=== PATIENT | male | born 1970 | race Caucasian/White ===

== ENCOUNTER 2018-08-03 07:59 | Inpatient (IN) | payer MEDICARE, MEDICAID ==
[~2018-08-03] VITALS: Ht 185.4 cm; Wt 87.0 kg
[2018-08-03] MEDS ORDERED: HALO10 PO (08:11)
[2018-08-03 08:21] LABS: BASOPHILS % (AUTO) 0.9 % (0.0-2.0); HEMATOCRIT 46.9 % (41-53); HEMOGLOBIN 15.7 g/dL (13.5-17.5); LYMPHOCYTES # (AUTO) 1.4 K/uL (1.0-4.8); MEAN CORPUSCULAR HEMOGLOBIN 30.5 pg (26.0-34.0); MEAN CORPUSCULAR HGB CONC 33.4 G/dL (31.0-37.0); MEAN CORPUSCULAR VOLUME 91 fL (80-100); MONOCYTES # (AUTO) 0.4 K/uL (0.1-1.0); MONOCYTES % (AUTO) 6.9 % (2.0-9.0); NEUTROPHILS # (AUTO) 4.2 K/uL (1.8-7.7); NEUTROPHILS % (AUTO) 67.2 % (40.0-70.0); PLATELET COUNT (AUTO) 213 K/uL (150-450); RED BLOOD CELL COUNT(AUTO) 5.15 MIL/uL (4.50-5.90); RED CELL DISTRIBUTION WIDTH 12.4 % (11.5-14.5)
[2018-08-03 08:35] LABS: ANION GAP 11 mmol/L (8-16); CALCIUM, TOTAL 9.1 mg/dL (8.8-10.5); CARBON DIOXIDE 25 mmol/L (22-29); CHLORIDE 105 mmol/L (98-107); CREATININE 1.13 mg/dL (0.60-1.30); GLOMERULAR FILTR. RATE CALC > 60 mL/min (>60); GLUCOSE,RANDOM 109 mg/dL (70-110); POTASSIUM 4.1 mmol/L (3.5-5.1); SODIUM SERUM 141 mmol/L (136-145); UREA NITROGEN, BLOOD 11 mg/dL (7-18)
[2018-08-03 08:42] LABS: ALANINE AMINOTRANSFERASE 14 U/L (12-78); ALBUMIN 4.1 g/dL (3.4-5.0); ALKALINE PHOSPHATASE 67 U/L (46-116); ASPARTATE AMINOTRANSFERASE 12 U/L (15-37); BILIRUBIN,TOTAL 0.7 mg/dL (0.1-1.0); TOTAL PROTEIN, SERUM 6.8 g/dL (6.4-8.2)
[2018-08-03] MEDS ORDERED: HALOPERIDOL LACTATE 5 MG/ML VIAL IM ONE (08:45)
[2018-08-03] MEDS ORDERED: LORazepam 2 MG/ML VIAL IM ONE (08:45)
[2018-08-03 08:47] LABS: AMPHET/METH SCREEN,URINE NEGATIVE (NEGATIVE); BARBITURATE SCREEN, URINE NEGATIVE (NEGATIVE); BENZODIAZEPINES SCREEN,URINE NEGATIVE (NEGATIVE); CANNABINOID SCREEN,URINE NEGATIVE (NEGATIVE); COCAINE SCREEN,URINE NEGATIVE (NEGATIVE); METHADONE SCREEN, URINE NEGATIVE (NEGATIVE); OPIATE SCREEN,URINE NEGATIVE (NEGATIVE); PHENCYCLIDINE SCREEN,URINE NEGATIVE (NEGATIVE)
[2018-08-03] MEDS ORDERED: PNEUMOCOCCAL VACCINE POLYVALENT 0.5 ML VIAL [PPSV23] IM ONE (20:30)
[2018-08-03 20:46] VITALS: BP 127/89
[2018-08-03] MEDS ORDERED: ACETAMINOPHEN 325 MG TABLET PO PRN (22:00)
[2018-08-03] MEDS ORDERED: MAG HYDROX/AL HYDROX/SIMETH ES 30 ML SUSPENSION UDCUP PO PRN (22:00)
[2018-08-03] MEDS ORDERED: ALBUTEROL SULFATE HFA 90 MCG/PUFF 8 GM INHALER IH PRN (22:00)
[2018-08-03] MEDS ORDERED: DOCUSATE SODIUM 100 MG CAPSULE PO PRN (22:00)
[2018-08-03] MEDS ORDERED: PETROLATUM,WHITE 28 GM JELLY TP PRN (22:00)
[2018-08-03] MEDS ORDERED: LOPERAMIDE HCL 2 MG CAPSULE PO PRN (22:00)
[2018-08-03] MEDS ORDERED: CloNIDine HCL 0.1 MG TABLET PO PRN (22:00)
[2018-08-03] MEDS ORDERED: ONDANSETRON HCL 4 MG TABLET PO PRN (22:00)
[2018-08-03] MEDS ORDERED: MAGNESIUM HYDROXIDE SUSPENSION 30 ML UDCUP PO PRN (22:00)
[2018-08-03] MEDS ORDERED: NICOTINE 14 MG/24 HOUR PATCH TD PRN (22:00)
[2018-08-03] MEDS ORDERED: GuaiFENesin/D-METHORPHAN [SUGAR-FREE] 200-20MG/10 ML SYRUP UDCUP PO PRN (22:00)
[2018-08-03] MEDS ORDERED: IBUPROFEN 400 MG TABLET PO PRN (22:00)
[2018-08-04 06:24] LABS: ALBUMIN 3.8 g/dL (3.4-5.0); BILIRUBIN,TOTAL 0.6 mg/dL (0.1-1.0); CHOL/HDL RATIO 5.2 (4.2-7.3); CREATININE 1.35 mg/dL (0.60-1.30); POTASSIUM 4.3 mmol/L (3.5-5.1); THYROID STIMULATING HORMONE 0.66 uIU/mL (0.36-3.74); TOTAL PROTEIN, SERUM 6.5 g/dL (6.4-8.2)
[2018-08-04 07:14] LABS: HEMOGLOBIN A1C 5.3 % (4.5-6.2)
[2018-08-04 08:21] VITALS: BP 95/63
[2018-08-04] MEDS ORDERED: HALOPERIDOL 10 MG TABLET PO ONE (11:15)
[2018-08-04 16:20] VITALS: BP 104/64
[2018-08-04] MEDS: LORazepam 2 MG TABLET PO PRN (17:43)
[2018-08-04] MEDS: HALOPERIDOL 5 MG TABLET PO PRN (17:43)
[2018-08-04] MEDS: HALOPERIDOL 10 MG TABLET PO SCH (20:35)
[2018-08-04] MEDS: ZOLPIDEM TARTRATE 10 MG TABLET PO PRN (20:36)
[2018-08-05 08:00] VITALS: BP 98/59
[2018-08-05] MEDS: LORazepam 2 MG TABLET PO PRN ×2 (10:21→17:02)
[2018-08-05] MEDS: HALOPERIDOL 5 MG TABLET PO PRN ×2 (10:21→17:02)
[2018-08-05 16:15] VITALS: BP 102/79
[2018-08-05] MEDS: ZOLPIDEM TARTRATE 10 MG TABLET PO PRN (20:38)
[2018-08-05] MEDS: HALOPERIDOL 10 MG TABLET PO SCH (20:38)
[2018-08-06] MEDS: LORazepam 2 MG TABLET PO PRN ×2 (10:44→17:12)
[2018-08-06 13:55] VITALS: BP 110/80
[2018-08-06 16:40] VITALS: BP 105/77
[2018-08-06] MEDS: HALOPERIDOL 5 MG TABLET PO PRN (17:12)
[2018-08-06] MEDS: HALOPERIDOL 10 MG TABLET PO SCH (20:12)
[2018-08-06] MEDS: ZOLPIDEM TARTRATE 10 MG TABLET PO PRN (20:12)
[2018-08-07] MEDS: LORazepam 2 MG TABLET PO PRN (08:03)
[2018-08-07] MEDS: HALOPERIDOL 5 MG TABLET PO PRN (08:03)
[2018-08-07] MEDS ORDERED: HALO10 PO (09:00)
[2018-08-07 09:41] VITALS: BP 107/79
== END 2018-08-07 13:11 | disposition home or self-care (01) | DRG 885 ==
LOC: EMS 08:01 → 3EC 19:07
DX: F20.0 Paranoid schizophrenia (principal); N17.9 Acute kidney failure, unspecified; R45.851 Suicidal ideations; F31.9 Bipolar disorder, unspecified; I10 Essential (primary) hypertension; R45.850 Homicidal ideations; Z79.899 Other long term (current) drug therapy; Z87.891 Personal history of nicotine dependence; Z91.5 Personal history of self-harm
CPT/HCPCS: 83036; 84443; 96372; G0480; J1630; J2060